=== PATIENT | female | born 1940 | race Two or more races ===

== ENCOUNTER 2017-06-26 08:39 | Outpatient (CLI) | payer OTHER ==
[~2017-06-26 08:39] MED LIST: FOSAMAX70 MG; GABAPENTIN300 MG PO; INTESTINEX680 MG PO; LISINOPRIL20 MG; LOPRESSOR HCT 51 TAB PO; MEDROL4 MG PO; METROPOLOL; NEURONTIN300 MG PO; PARA COLESTEROL; PRAVASTATIN SOD40 MG; PREVACID30 MG; PRILOSEC40 MG PO; PRINIVIL20 MG PO; VASOFLEX TABLET1 TAB
== END 2017-06-26 08:44 | disposition home or self-care (01) ==
LOC: LAB 08:39
DX: E78.2 Mixed hyperlipidemia (principal); I11.9 Hypertensive heart disease without heart failure; E03.4 Atrophy of thyroid (acquired)

== ENCOUNTER 2017-08-30 13:38 | Outpatient (CLI) | payer OTHER | END 2017-08-30 13:41 | disposition home or self-care (01) | LOC: MAMO-SONO 13:38 | DX: Z12.31 Encounter for screening mammogram for malignant neoplasm of breast (principal) ==

== ENCOUNTER 2017-10-29 08:24 | Outpatient (CLI) | payer OTHER | END 2017-10-29 08:31 | disposition home or self-care (01) | LOC: LAB 08:24 | DX: D50.8 Other iron deficiency anemias (principal); E78.2 Mixed hyperlipidemia; I11.9 Hypertensive heart disease without heart failure ==

== ENCOUNTER 2017-11-21 09:50 | Outpatient (CLI) | payer OTHER | END 2017-11-21 10:00 | disposition home or self-care (01) | LOC: NUCLEAR 09:50 | DX: M85.9 Disorder of bone density and structure, unspecified (principal); M81.0 Age-related osteoporosis without current pathological fracture ==

== ENCOUNTER 2018-03-15 08:08 | Outpatient (CLI) | payer OTHER | END 2018-03-15 08:12 | disposition home or self-care (01) | LOC: LAB 08:08 | DX: E78.2 Mixed hyperlipidemia (principal); I11.9 Hypertensive heart disease without heart failure ==

== ENCOUNTER 2018-05-06 10:22 | Emergency (ER) | payer OTHER ==
[~2018-05-06] VITALS: Ht 162.6 cm; Wt 59.0 kg
== END 2018-05-06 14:29 | disposition home or self-care (01) ==
LOC: ER 10:22
DX: R51 Headache (principal); J34.2 Deviated nasal septum

== ENCOUNTER 2018-05-13 08:09 | Outpatient (CLI) | payer OTHER | END 2018-05-13 08:16 | disposition home or self-care (01) | LOC: LAB 08:09 | DX: E78.2 Mixed hyperlipidemia (principal); I11.9 Hypertensive heart disease without heart failure; E03.4 Atrophy of thyroid (acquired); N30.00 Acute cystitis without hematuria; N39.0 Urinary tract infection, site not specified; Z12.11 Encounter for screening for malignant neoplasm of colon; E88.89 Other specified metabolic disorders ==

== ENCOUNTER 2018-05-13 09:39 | Outpatient (CLI) | payer OTHER | END 2018-05-13 09:47 | disposition home or self-care (01) | LOC: TOM 09:39 | DX: J01.40 Acute pansinusitis, unspecified (principal) ==

== ENCOUNTER 2018-10-05 12:43 | Emergency (ER) | payer OTHER ==
[~2018-10-05] VITALS: Ht 162.6 cm; Wt 57.2 kg
== END 2018-10-05 16:02 | disposition home or self-care (01) ==
LOC: ER 12:43
DX: M17.0 Bilateral primary osteoarthritis of knee (principal); M25.562 Pain in left knee; M25.561 Pain in right knee

== ENCOUNTER 2018-12-09 12:01 | Emergency (ER) | payer OTHER ==
[~2018-12-09] VITALS: Ht 157.5 cm; Wt 59.0 kg
== END 2018-12-09 19:55 | disposition home or self-care (01) ==
LOC: ER 12:01 → CPU-OBS 12:42 → ER 19:55
DX: K80.80 Other cholelithiasis without obstruction (principal); R07.89 Other chest pain

== ENCOUNTER 2019-01-06 08:19 | Outpatient (CLI) | payer OTHER | END 2019-01-06 08:24 | disposition home or self-care (01) | LOC: EDBD 08:19 → LAB 08:19 | DX: R11.0 Nausea (principal); Z00.8 Encounter for other general examination ==

== ENCOUNTER 2019-01-06 09:28 | Inpatient (IN) | payer OTHER ==
[~2019-01-06] VITALS: Ht 162.6 cm; Wt 57.2 kg
[2019-01-16] MEDS ORDERED: LISINOPRIL40 MG PO (10:58)
[2019-01-16] MEDS ORDERED: VOLTAREN100 GM (10:59)
[2019-01-16] MEDS ORDERED: TENORMIN50 M1 (12:14)
[2019-01-23] MEDS ORDERED: PERCOCET 5-3251 EACH PO (13:51)
[2019-01-23] MEDS ORDERED: ELIQUIS2.5 MG PO (13:51)
== END 2019-01-23 18:37 | DRG 470 ==
LOC: SURG 01-14 07:30 → SURH 01-21 05:10 → O/R 01-21 05:10 → EDBD 01-21 07:30 → SURG 01-21 07:30 → SURH 01-21 10:49 → SURG 01-21 11:15 → SURH 01-23 18:37
PROVIDERS: ADMIT Orthopaedic Surgery
PROC: 0MNN0ZZ Release Right Knee Bursa and Ligament, Open Approach (ICD-10-PCS; 2019-01-21)
PROC: 0SRC0J9 Replacement of Right Knee Joint with Synthetic Substitute, Cemented, Open Approach (ICD-10-PCS; principal; 2019-01-21 11:15)
DX: M17.11 Unilateral primary osteoarthritis, right knee (principal); M80.00XA Age-related osteoporosis with current pathological fracture, unspecified site, initial encounter for fracture; D62 Acute posthemorrhagic anemia; M85.461 Solitary bone cyst, right tibia and fibula; M22.11 Recurrent subluxation of patella, right knee; Z96.651 Presence of right artificial knee joint

== ENCOUNTER 2019-05-20 08:52 | Outpatient (CLI) | payer OTHER ==
[~2019-05-20 08:52] MED LIST changes: +ELIQUIS2.5 MG PO; +LISINOPRIL40 MG PO; +PERCOCET 5-3251 EACH PO; +TENORMIN50 M1; +VOLTAREN100 GM
== END 2019-05-20 15:00 | disposition home or self-care (01) ==
LOC: LAB 08:52
DX: D50.8 Other iron deficiency anemias (principal); E78.2 Mixed hyperlipidemia; I11.9 Hypertensive heart disease without heart failure; E03.8 Other specified hypothyroidism; R73.02 Impaired glucose tolerance (oral)

== ENCOUNTER → 2019-11-05 08:33 | Outpatient (CLI) | payer OTHER | END | disposition home or self-care (01) | LOC: LAB 08:33 | DX: I11.9 Hypertensive heart disease without heart failure (principal); E78.2 Mixed hyperlipidemia; D50.0 Iron deficiency anemia secondary to blood loss (chronic); N39.0 Urinary tract infection, site not specified; Z12.11 Encounter for screening for malignant neoplasm of colon; E88.89 Other specified metabolic disorders ==

== ENCOUNTER 2020-02-09 08:25 | Outpatient (CLI) | payer OTHER | END 2020-02-09 08:31 | disposition home or self-care (01) | LOC: LAB 08:25 | DX: D50.0 Iron deficiency anemia secondary to blood loss (chronic) (principal); I11.9 Hypertensive heart disease without heart failure; E78.2 Mixed hyperlipidemia; E88.89 Other specified metabolic disorders; N39.0 Urinary tract infection, site not specified; E11.9 Type 2 diabetes mellitus without complications ==

== ENCOUNTER 2020-08-11 08:25 | Outpatient (CLI) | payer OTHER | END 2020-08-11 08:30 | disposition home or self-care (01) | LOC: LAB 08:25 | DX: N39.0 Urinary tract infection, site not specified (principal); D50.0 Iron deficiency anemia secondary to blood loss (chronic); R73.01 Impaired fasting glucose; E55.9 Vitamin D deficiency, unspecified; E78.2 Mixed hyperlipidemia; I11.9 Hypertensive heart disease without heart failure; E03.4 Atrophy of thyroid (acquired) ==

== ENCOUNTER 2020-10-15 10:14 | Emergency (ER) | payer OTHER ==
[~2020-10-15] VITALS: Ht 152.4 cm; Wt 61.7 kg
== END 2020-10-15 14:44 | disposition home or self-care (01) ==
LOC: ER 10:14
DX: M25.562 Pain in left knee (principal)

== ENCOUNTER 2020-12-03 08:04 | Outpatient (CLI) | payer OTHER | END 2020-12-03 08:15 | disposition home or self-care (01) | LOC: LAB 08:04 | DX: N39.0 Urinary tract infection, site not specified (principal); I11.9 Hypertensive heart disease without heart failure; E78.2 Mixed hyperlipidemia; D50.0 Iron deficiency anemia secondary to blood loss (chronic); R73.01 Impaired fasting glucose; Z12.11 Encounter for screening for malignant neoplasm of colon ==

== ENCOUNTER → 2021-06-14 08:22 | Outpatient (CLI) | payer OTHER | END | disposition home or self-care (01) | LOC: LAB 08:22 | PROVIDERS: ATTEND Specialist | DX: E78.3 Hyperchylomicronemia (principal); I11.9 Hypertensive heart disease without heart failure; R73.03 Prediabetes; D50.9 Iron deficiency anemia, unspecified ==

== ENCOUNTER 2021-06-14 09:13 | Outpatient (CLI) | payer OTHER | END 2021-06-14 09:27 | disposition home or self-care (01) | LOC: MAMO-SONO 09:13 | PROVIDERS: ATTEND General Practice | DX: N61.0 Mastitis without abscess (principal); N60.11 Diffuse cystic mastopathy of right breast; N60.12 Diffuse cystic mastopathy of left breast ==

== ENCOUNTER 2021-10-10 08:53 | Outpatient (CLI) | payer OTHER | END 2021-10-10 08:58 | disposition home or self-care (01) | LOC: LAB 08:53 | PROVIDERS: ATTEND Specialist | DX: E78.2 Mixed hyperlipidemia (principal); I11.9 Hypertensive heart disease without heart failure; E03.4 Atrophy of thyroid (acquired); N30.00 Acute cystitis without hematuria ==

== ENCOUNTER 2022-03-14 07:41 | Outpatient (CLI) | payer OTHER | END 2022-03-14 07:54 | disposition home or self-care (01) | LOC: LAB 07:41 | PROVIDERS: ATTEND Specialist | DX: E78.2 Mixed hyperlipidemia (principal); I11.9 Hypertensive heart disease without heart failure; R73.03 Prediabetes; D50.9 Iron deficiency anemia, unspecified ==

== ENCOUNTER 2022-04-18 09:18 | Emergency (ER) | payer OTHER ==
[~2022-04-18] VITALS: Ht 162.6 cm; Wt 61.2 kg
[2022-04-18] MEDS ORDERED: NITROFURANTOIN100 MG PO (15:04)
== END 2022-04-18 15:24 | disposition home or self-care (01) ==
LOC: ER 09:18
DX: M25.512 Pain in left shoulder (principal); M25.511 Pain in right shoulder; M19.90 Unspecified osteoarthritis, unspecified site; H40.9 Unspecified glaucoma; N39.0 Urinary tract infection, site not specified; Z88.2 Allergy status to sulfonamides; Z88.6 Allergy status to analgesic agent; K44.9 Diaphragmatic hernia without obstruction or gangrene; Z20.822 Contact with and (suspected) exposure to COVID-19

== ENCOUNTER 2022-08-03 08:28 | Outpatient (CLI) | payer OTHER ==
[~2022-08-03 08:28] MED LIST changes: +NITROFURANTOIN100 MG PO
== END 2022-08-03 08:32 | disposition home or self-care (01) ==
LOC: LAB 08:28
DX: E78.2 Mixed hyperlipidemia (principal); I11.9 Hypertensive heart disease without heart failure; R73.03 Prediabetes

== ENCOUNTER 2022-11-08 08:53 | Outpatient (CLI) | payer OTHER | END 2022-11-08 08:56 | disposition home or self-care (01) | LOC: LAB 08:53 | PROVIDERS: ATTEND General Practice | DX: N39.0 Urinary tract infection, site not specified (principal); D64.9 Anemia, unspecified; E03.9 Hypothyroidism, unspecified; E55.9 Vitamin D deficiency, unspecified; R19.5 Other fecal abnormalities; E78.2 Mixed hyperlipidemia; D11.9 Benign neoplasm of major salivary gland, unspecified ==

== ENCOUNTER 2023-01-01 13:59 | Emergency (ER) | payer OTHER ==
[~2023-01-01] VITALS: Ht 167.6 cm; Wt 77.1 kg
== END 2023-01-01 20:28 | disposition home or self-care (01) ==
LOC: ER 13:59
DX: S40.011A Contusion of right shoulder, initial encounter (principal); S80.01XA Contusion of right knee, initial encounter; S50.01XA Contusion of right elbow, initial encounter; W19.XXXA Unspecified fall, initial encounter; Y93.9 Activity, unspecified; Y92.89 Other specified places as the place of occurrence of the external cause; Y99.9 Unspecified external cause status; Z88.6 Allergy status to analgesic agent; Z88.2 Allergy status to sulfonamides; I10 Essential (primary) hypertension

== ENCOUNTER → 2023-05-11 08:44 | Outpatient (CLI) | payer OTHER ==
[2023-05-11 10:03] LABS: CALCIUM 9.5 mg/dL (8.5-10.1); CHOL HDL RATIO 5.2 (0-5.0); CREATININE SERUM 0.76 mg/dL (0.55-1.02); GFR 72.5; POTASSIUM 3.82 mEq/L (3.5-5.1)
== END | disposition home or self-care (01) ==
LOC: LAB 08:44
PROVIDERS: ATTEND Specialist
DX: E78.2 Mixed hyperlipidemia (principal); I11.9 Hypertensive heart disease without heart failure

== ENCOUNTER 2023-05-11 09:52 | Outpatient (CLI) | payer OTHER | END 2023-05-11 10:05 | disposition home or self-care (01) | LOC: MAMO-SONO 09:52 | PROVIDERS: ATTEND Family Medicine | DX: Z12.31 Encounter for screening mammogram for malignant neoplasm of breast (principal) ==

== ENCOUNTER 2023-07-14 08:29 | Emergency (ER) | payer OTHER ==
[~2023-07-14] VITALS: Ht 162.6 cm; Wt 57.2 kg
[2023-07-14] MEDS ORDERED: FAMOTIDINE/PF 20 MG in 0.9 % SODIUM CHLORIDE 8 ML IV PUSH STA (09:09)
[2023-07-14] MEDS ORDERED: HYOSCYAMINE SULFATE 0.125 MG TAB.SUBL SL ONE (09:15)
[2023-07-14] MEDS ORDERED: ONDANSETRON HCL 2 MG/ML VIAL IV ONE (09:15)
[2023-07-14] MEDS ORDERED: 0.9 % SODIUM CHLORIDE 1,000 ML IV SCH (09:30)
[2023-07-14 09:47] LABS: HEMATOCRIT 38.8 % (36.0-45.00); HEMOGLOBIN 13.2 g/dL (12.0-15.00); MEAN CELL VOLUME 91.4 fL (80.00-100.00); MEAN CORPUSCULAR HGB CONC 33.9 g/dl (32.0-36.0); PLATELET COUNT 247 K/uL (150-450); RED BLOOD COUNT 4.25 M/uL (4.00-6.00); RED CELL DISTRIBUTION WIDTH 14.3 % (11.5-14.5)
[2023-07-14 09:59] LABS: ALBUMIN 3.1 gm/dL (3.4-5.0); BILIRUBIN TOTAL 1.35 mg/dL (0.3-1.2); BILIRUBIN,CONJUGATED 0.96 mg/dL (0.0-0.2); BILIRUBIN,UNCONJUGATED 0.39 mg/dL (0.0-0.6); CALCIUM 8.6 mg/dL (8.5-10.1); CREATININE SERUM 0.79 mg/dL (0.55-1.02); GFR 69.33; GLOBULINA 4.1 G/DL (2.4-3.5); POTASSIUM 3.71 mEq/L (3.5-5.1); TOTAL PROTEIN 7.2 gm/dL (6.4-8.2)
[2023-07-14] MEDS ORDERED: KETOROLAC TROMETHAMINE 30 MG VIAL IV ONE (12:15)
[2023-07-14 16:15] LABS: BILIRUBIN TOTAL 1.82 mg/dL (0.3-1.2); BILIRUBIN,CONJUGATED 1.42 mg/dL (0.0-0.2); BILIRUBIN,UNCONJUGATED 0.4 mg/dL (0.0-0.6); TOTAL PROTEIN 6.2 gm/dL (6.4-8.2)
[2023-07-14] MEDS ORDERED: PEPCID AC20 MG PO (17:26)
[2023-07-14] MEDS ORDERED: ZOFRAN8 MG PO (17:26)
== END 2023-07-14 17:35 | disposition home or self-care (01) ==
LOC: ER 08:29
PROVIDERS: General Practice
DX: K52.9 Noninfective gastroenteritis and colitis, unspecified (principal); K75.9 Inflammatory liver disease, unspecified; R10.9 Unspecified abdominal pain; I10 Essential (primary) hypertension; Z88.2 Allergy status to sulfonamides; Z91.013 Allergy to seafood
CPT/HCPCS: 36415; 76700; 96365; 96366; 99284; J1885; J2405; J3490; J7030

== ENCOUNTER 2023-07-18 08:27 | Outpatient (CLI) | payer OTHER ==
[~2023-07-18 08:27] MED LIST changes: +PEPCID AC20 MG PO; +ZOFRAN8 MG PO
== END 2023-07-18 08:35 | disposition home or self-care (01) ==
LOC: MRI 08:27
PROVIDERS: ATTEND General Practice
DX: K80.80 Other cholelithiasis without obstruction (principal); K80.20 Calculus of gallbladder without cholecystitis without obstruction
CPT/HCPCS: 74181

== ENCOUNTER → 2024-02-15 08:16 | Outpatient (CLI) | payer OTHER ==
[2024-02-15 09:22] LABS: URINE APPEARANCE Clear; URINE BILIRRUBIN Negative (NEGATIVE); URINE BLOOD Negative; URINE COLOR Yellow; URINE GLUCOSE Negative (NEGATIVE); URINE KETONE Negative (NEGATIVE); URINE LEUKOCYTE Small; URINE NITRATE Negative; URINE PROTEIN Negative (NEGATIVE); URINE UROBILINOGEN 0.2 E.U./dl
[2024-02-15 10:15] LABS: URINE BACTERIA 6458.6 uL (0.0-1933); URINE EPITHELIAL CELLS 29.3 uL (0.0-38.8); URINE RBC 22.2 uL (0.0-20.8); URINE WBC 119.1 uL (0.0-23.2)
[2024-02-15 10:32] LABS: ALBUMIN 3.6 gm/dL (3.4-5.0); BILIRUBIN TOTAL 0.57 mg/dL (0.3-1.2); CALCIUM 9.3 mg/dL (8.5-10.1); CHOL HDL RATIO 3.6 (0-5.0); CREATININE SERUM 0.56 mg/dL (0.55-1.02); GFR 103.13; GLOBULINA 3.1 G/DL (2.4-3.5); POTASSIUM 4.08 mEq/L (3.5-5.1); TOTAL PROTEIN 6.7 gm/dL (6.4-8.2)
== END | disposition home or self-care (01) ==
LOC: LAB 08:16
PROVIDERS: ATTEND Specialist
DX: I11.9 Hypertensive heart disease without heart failure (principal); E78.2 Mixed hyperlipidemia; E11.9 Type 2 diabetes mellitus without complications; D64.9 Anemia, unspecified; N39.0 Urinary tract infection, site not specified

== ENCOUNTER 2024-08-05 08:41 | Outpatient (CLI) | payer OTHER ==
[2024-08-05 09:34] LABS: PH,URINE 6.5 (5.0-8.0); URINE APPEARANCE Clear; URINE BILIRRUBIN Negative (NEGATIVE); URINE BLOOD Trace; URINE COLOR Yellow; URINE GLUCOSE Negative (NEGATIVE); URINE KETONE Negative (NEGATIVE); URINE LEUKOCYTE Large; URINE NITRATE Negative; URINE PROTEIN Negative (NEGATIVE); URINE UROBILINOGEN 0.2 E.U./dl
[2024-08-05 09:36] LABS: URINE BACTERIA 3283.8 uL (0.0-1933); URINE EPITHELIAL CELLS 13.7 uL (0.0-38.8); URINE RBC 17.6 uL (0.0-20.8); URINE WBC 428.5 uL (0.0-23.2)
[2024-08-05 09:42] LABS: URINE CAST 0.14 uL (0.0-1.40)
[2024-08-05 10:34] LABS: CREATININE SERUM 0.54 mg/dL (0.55-1.02); GFR 107.3; POTASSIUM 4.16 mEq/L (3.5-5.1); TSH 1.89 uIU/mL (0.358-3.74)
== END 2024-08-05 08:45 | disposition home or self-care (01) ==
LOC: LAB 08:41
PROVIDERS: ATTEND Specialist
DX: I11.9 Hypertensive heart disease without heart failure (principal); E78.2 Mixed hyperlipidemia; E03.9 Hypothyroidism, unspecified; R82.90 Unspecified abnormal findings in urine

== ENCOUNTER 2024-11-21 08:11 | Outpatient (CLI) | payer OTHER ==
[2024-11-21 09:42] LABS: ALT/SGPT 19.0 U/L (12-78); AST/SGOT 13.0 U/L (15-37); BILIRUBIN TOTAL 0.65 mg/dL (0.3-1.2); BUN CREA RATIO 42.0 (7.0-25.0); CHOL HDL RATIO 3.0 (0-5.0); CREATININE SERUM 0.52 mg/dL (0.55-1.02); GFR 112.07; GLOBULINA 3.4 G/DL (2.4-3.5); GLUCOSE FASTING 88.0 mg/dL (65-100); HDL 36.0 mg/dl (40-60); LDL 52.0 mg/dl (0-130); OSMOLALITY SERUM 291.0 MOSM/KG (275-295); TSH 2.1 uIU/mL (0.358-3.74); VLDL 19.0 (0-39)
== END 2024-11-21 08:12 | disposition home or self-care (01) ==
LOC: LAB 08:11
PROVIDERS: ATTEND Specialist
DX: I11.9 Hypertensive heart disease without heart failure (principal); E78.2 Mixed hyperlipidemia; E03.9 Hypothyroidism, unspecified